=== PATIENT | male | born 1965 | race Caucasian/White ===

== ENCOUNTER 2023-04-24 02:43 | Emergency (ER) | payer OTHER ==
[~2023-04-24] VITALS: Ht 170.2 cm; Wt 85.0 kg
[2023-04-24 02:52] VITALS: O2SAT 98
[2023-04-24 05:50] VITALS: BP 160/85; PULSE 88; RESP 18; TEMP 98
== END 2023-04-24 05:50 | disposition home or self-care (01) ==
LOC: ER 02:43
DX: R04.0 Epistaxis (principal); I10 Essential (primary) hypertension
CPT/HCPCS: 99281